=== PATIENT | female | born 1930 | race Caucasian/White ===

== ENCOUNTER 2017-01-25 22:47 | Emergency (ER) | payer OTHER ==
[~2017-01-25] VITALS: Ht 165.1 cm; Wt 100.0 kg
[~2017-01-25 22:47] MED LIST: ALBU17I INH; ASPI81CH5 PO; DARV PO; FURO1TAB93 PO; GABA300 PO; NOVOLOGP2 SQ; SPIRCAP INH; TAB-TAB PO; TELM40 PO; Z.0.OXYGEN INH; ZOCO80TA PO; levemir SQ
[2017-01-25 22:54] VITALS: BP 160/67; PULSE 102; RESP 25; TEMP 98.4
[2017-01-25 22:59] VITALS: BP 149/70; PULSE 95; RESP 25; O2SAT 98
[2017-01-25] MEDS ORDERED: SODIUM CHLORIDE 0.9% FLUSH 10 ML FLUSH IVF PRN (23:00)
[2017-01-25] MEDS ORDERED: FURO1TAB62 PO (23:10)
[2017-01-25] MEDS ORDERED: ASPI81CH CHEW (23:10)
[2017-01-25] MEDS ORDERED: ALBU6.7H INH (23:10)
[2017-01-25] MEDS ORDERED: GABA600T PO (23:10)
[2017-01-25] MEDS ORDERED: LEVEMIR SQ (23:10)
[2017-01-25] MEDS ORDERED: SIMV5TAB3 PO (23:10)
[2017-01-25] MEDS ORDERED: GLIP5TAB8 PO (23:10)
[2017-01-25] MEDS ORDERED: NOVOLOGP2 SQ (23:10)
[2017-01-25] MEDS ORDERED: FUROSEMIDE 40 MG/4 ML VIAL IV PUSH ONE (23:15)
[2017-01-25 23:33] LABS: AUTOMATED NEUTROPHIL # 5.8 TH/MM3 (1.8-7.7); BASOPHIL % 0.6 % (0.0-2.0); EOSINOPHIL # 0.2 TH/MM3 (0-0.4); EOSINOPHIL % 2.7 % (0.0-4.0); HEMATOCRIT 33.6 % (35.0-46.0); HEMO FLAGS DIFF FINAL; LYMPH % 17.6 % (9.0-44.0); LYMPHOCYTE # 1.5 TH/MM3 (1.0-4.8); MEAN CELL VOLUME 93.4 FL (80.0-100.0); MEAN CORPUSCULAR HEMOGLOBIN 31.1 PG (27.0-34.0); MEAN CORPUSCULAR HGB CONC 33.3 % (32.0-36.0); MONO % 8.7 % (0.0-8.0); NEUT % 70.4 % (16.0-70.0); PLATELET COUNT 169 TH/MM3 (150-450); RED CELL DISTRIBUTION WIDTH 16.4 % (11.6-17.2); WHITE BLOOD COUNT 8.2 TH/MM3 (4.0-11.0)
--- NOTE | 2017-01-25 23:39 | RADRPT ---
EXAM DATE/TIME: 01/25/2017 23:19 [facility] COMPARISON: CHEST SINGLE AP, December 31, 2011, 18:51. INDICATIONS : Patient states shortness of breath. MEDICAL HISTORY : None. SURGICAL HISTORY : None. ENCOUNTER: Initial ACUITY: 1 day PAIN SCORE: 2/10 LOCATION: Bilateral chest FINDINGS: A single view of the chest demonstrates the lungs to be symmetrically aerated without evidence of mas s, infiltrate or effusion. Cardiomegaly and tortuous thoracic aorta. Pulmonary vascular congestion. The cardiomediastinal contours are unremarkable. Osseous structures are intact. CONCLUSION: 1. Cardiomegaly and pulmonary vascular congestion. Charles Alexander MD on January 25, 2017 at 23:37 Board Certified Radiologist. This report was verified electronically.
--- NOTE | 2017-01-26 00:01 | PD ---
HPI Chief Complaint: Respiratory Distress Time Seen by Provider: 22:54 Travel History International Travel<30 days: No Contact w/Intl Traveler<30days: No Traveled to known affect area: No History of Present Illness HPI Is an 86 year-old woman who presents to the emergency department complaining of some shortness of breath is been gradual in onset over the past several days. She states she's been having progressively worsening trouble with her breathing during this time. She is on oxygen at home as needed. She is a history of both COPD and CHF. She last used her inhaler at home this morning. She states that she is only been taking half as much Lasix as she supposed to because it makes her go to the bathroom too much. She has noticed increased lower extremity swelling. She's also had some increased cough, and increased sputum production. History Past Medical History Narrative Medical HTN COPD CHF DM HTN HLD Obesity Tetanus Vaccination: > 5 Years Influenza Vaccination: No Menopausal: Yes : 3 Para: 3 Social History Alcohol Use: No Tobacco Use: No Allergies-Medications (Allergen,Severity, Reaction): Coded Allergies: No Known Allergies (Verified , 01/25/17) Reported Meds & Prescriptions Reported Meds & Active Scripts Active Reported Aspirin 81 Mg Chew 81 Mg CHEW DAILY Proventil Hfa 6.7 GM Inh (Albuterol Sulfate) 90 Mcg/Act Aer 1 Puff INH Q4H PRN Novolog Inj (Insulin Aspart) 1,000 Unit/10 Ml Vial 1 Units SQ ONCE Lasix (Furosemide) 20 Mg Tab 20 Mg PO BID Simvastatin 5 Mg Tab 5 Mg PO DAILY Levemir Inj (Insulin Detemir) 1,000 unit/ 10 ML Vial 10 Units SQ BID Do not mix with any other Insulin. Gabapentin 600 Mg Tab 600 Mg PO TID Glipizide 5 Mg Tab 5 Mg PO BIDAC Take 30 minutes before a meal Review of Systems Except as stated in HPI: all other systems reviewed are Neg Physical Exam Narrative GENERAL: 86 year-old woman, no acute distress. SKIN: Focused skin assessment warm/dry. HEAD: Atraumatic. Normocephalic. CARDIOVASCULAR: Regular rate and rhythm. No murmur appreciated. RESPIRATORY: Coarse breath sounds. Rales in the bases. GASTROINTESTINAL: Abdomen soft, non-tender, nondistended. Hepatic and splenic margins not palpable. MUSCULOSKELETAL: No obvious deformities. Pitting edema bilateral lower extremities. NEUROLOGICAL: Awake and alert. No obvious cranial nerve deficits. Motor grossly within normal limits. Normal speech. PSYCHIATRIC: Appropriate mood and affect; insight and judgment normal. Data Data Last Documented VS Vital Signs Date Time Temp Pulse Resp B/P Pulse Ox O2 Delivery O2 Flow Rate FiO2 01/25/17 22:59 98 Nasal Cannula 2 01/25/17 22:59 101 25 01/25/17 22:59 149/70 01/25/17 22:54 98.4 Orders Complete Blood Count With Diff (01/25/17 22:56) Comprehensive Metabolic Panel (01/25/17 22:56) B-Type Natriuretic Peptide (01/25/17 22:56) Magnesium (Mg) (01/25/17 22:56) Troponin I (01/25/17 22:56) Iv Access Insert/Monitor (01/25/17 22:56) Electrocardiogram (01/25/17 22:56) Ecg Monitoring (01/25/17 22:56) Oximetry (01/25/17 22:56) Oxygen Administration (01/25/17 22:56) Chest, Single Ap (01/25/17 22:56) Sodium Chloride 0.9% Flush (Ns Flush) (01/25/17 23:00) Furosemide Inj (Lasix Inj) (01/25/17 23:15) Insulin Detemir Inj (Levemir Inj) (01/26/17 00:02) Albuterol-Ipratropium Neb (Duoneb Neb) (01/26/17 04:00) Azithromycin (Zithromax) (01/26/17 01:00) Labs Laboratory Tests Test 01/25/17 23:12 White Blood Count 8.2 TH/MM3 Red Blood Count 3.60 MIL/MM3 Hemoglobin 11.2 GM/DL Hematocrit 33.6 % Mean Corpuscular Volume 93.4 FL Mean Corpuscular Hemoglobin 31.1 PG Mean Corpuscular Hemoglobin 33.3 % Concent Red Cell Distribution Width 16.4 % Platelet Count 169 TH/MM3 Mean Platelet Volume 8.5 FL Neutrophils (%) (Auto) 70.4 % Lymphocytes (%) (Auto) 17.6 % Monocytes (%) (Auto) 8.7 % Eosinophils (%) (Auto) 2.7 % Basophils (%) (Auto) 0.6 % Neutrophils # (Auto) 5.8 TH/MM3 Lymphocytes # (Auto) 1.5 TH/MM3 Monocytes # (Auto) 0.7 TH/MM3 Eosinophils # (Auto) 0.2 TH/MM3 Basophils # (Auto) 0.0 TH/MM3 CBC Comment DIFF FINAL Differential Comment Sodium Level 141 MEQ/L Potassium Level 4.0 MEQ/L Chloride Level 101 MEQ/L Carbon Dioxide Level 31.3 MEQ/L Anion Gap 9 MEQ/L Blood Urea Nitrogen 31 MG/DL Creatinine 1.32 MG/DL Estimat Glomerular Filtration 38 ML/MIN Rate Random Glucose 135 MG/DL Calcium Level 9.2 MG/DL Magnesium Level 2.1 MG/DL Total Bilirubin 0.5 MG/DL Aspartate Amino Transf 39 U/L (AST/SGOT) Alanine Aminotransferase 31 U/L (ALT/SGPT) Alkaline Phosphatase 77 U/L Troponin I LESS THAN 0.02 NG/ML B-Type Natriuretic Peptide 102 PG/ML Total Protein 7.2 GM/DL Albumin 3.7 GM/DL [facility] Medical Decision Making Medical Screen Exam Complete: Yes Emergency Medical Condition: Yes Interpretation(s) LABS: CBC remarkable for mild anemia. CMP: BUN and creatinine 31/1.32 Troponin negative BNP 102 Chest x-ray: Cardiomegaly and pulmonary vascular congestion. Differential Diagnosis COPD exacerbation, volume overload, CHF, ACS, other Narrative Course Medical decision making INITIAL cause an 86 year-old woman presents to the emergency department with shortness of breath. She is evidence of volume overload with Rales in her bases , edema, and noncompliance with Lasix. She's also had increased cough and sputum production. We'll check labs, x-ray, reassess. FINAL: 86 year-old woman of likely volume overload, CHF exacerbation with mild COPD exacerbation as well. We'll recommend increase diuretic to her prescribed amount, wear soft daily, steroids and azithromycin, outpatient follow-up. Diagnosis Primary Impression: Acute exacerbation of CHF (congestive heart failure) Additional Impression: COPD with exacerbation Additional Instructions: Double Lasix to 40 mg twice a day for 5 days. Take azithromycin as prescribed. Continue albuterol every 4 hours until symptoms resolve. Take prednisone as prescribed. Follow-up with your primary doctor on Saturday. Return to the emergency department for any new or worsening symptoms. Med/Other Pt SpecificInfo: Prescription(s) given Scripts Prednisone (Deltasone)20 Mg Tab40 Mg PO DAILY 7 Days Prov:Daniel Arriaga MD 01/26/17 Azithromycin 250 Mg Svt354 Mg PO DAILY 4 Days Prov:Daniel Arriaga MD 01/26/17 Disposition: 01 DISCHARGE HOME Condition: Stable Daniel Arriaga MD January 26, 2017 00:01
[2017-01-26] MEDS ORDERED: INSULIN DETEMIR 100 UNITS/ML VIAL SQ STA (00:02)
[2017-01-26 00:23] LABS: ALKALINE PHOSPHATASE 77 U/L (45-117); ALT (GPT) 31 U/L (10-53); ANION GAP 9 MEQ/L (5-15); AST (GOT) 39 U/L (15-37); BICARBONATE 31.3 MEQ/L (21.0-32.0); BLOOD UREA NITROGEN 31 MG/DL (7-18); CHLORIDE 101 MEQ/L (98-107); GLOMERULAR FILTRATION RATE 38 ML/MIN (>89); MAGNESIUM 2.1 MG/DL (1.5-2.5); SODIUM (NA) 141 MEQ/L (136-145); TOTAL BILIRUBIN ADULT 0.5 MG/DL (0.2-1.0)
[2017-01-26] MEDS ORDERED: AZIT250T3 PO (01:00)
[2017-01-26] MEDS ORDERED: AZITHROMYCIN 250 MG TAB PO ONE (01:00)
[2017-01-26] MEDS ORDERED: PRED-503 PO (01:01)
[2017-01-26] MEDS ORDERED: RESP: ALBUTEROL 2.5 MG/IPRATROPIUM 0.5 MG NEB (SCH) NEB (04:00)
[2017-01-26 04:20] VITALS: BP 154/70; PULSE 100; RESP 25; TEMP 98.1; O2SAT 97
--- NOTE | 2017-01-26 09:55 | EKG ---
Date Performed: 01/25/2017 Time Performed: 23:03:50 PTAGE: 86 years EKG: Sinus rhythm WITH FIRST DEGREE AV BLOCK LEFT BUNDLE BRANCH BLOCK ABNORMAL ECG PREVIOUS TRACING : 12/31/2011 18.59 DOCTOR: Susie Landry Interpretating Date/Time 01/26/2017 09:53:10
== END 2017-01-26 05:38 | disposition home or self-care (01) ==
LOC: NEPC 22:47
DX: I50.9 Heart failure, unspecified (principal); J44.1 Chronic obstructive pulmonary disease with (acute) exacerbation; I10 Essential (primary) hypertension; E11.9 Type 2 diabetes mellitus without complications; E78.5 Hyperlipidemia, unspecified; Z79.82 Long term (current) use of aspirin; Z79.4 Long term (current) use of insulin
CPT/HCPCS: 71010; 80053; 83735; 83880; 84484; 85025; 93005; 94664; 96372; 96374; 99285; J1940

== ENCOUNTER 2017-02-11 08:56 | Inpatient (IN) | payer OTHER, MEDICARE ==
[2017-02-11] VITALS (9 sets, daily range): BP systolic 101–116; BP diastolic 58–90; PULSE 78–120; RESP 18–22; TEMP 97.6–98.8; O2SAT 93–100
[~2017-02-11] VITALS: Ht 165.1 cm; Wt 100.0 kg
[~2017-02-11 08:56] MED LIST changes: -ALBU17I INH; +ALBU6.7H INH; +ASPI81CH CHEW; -ASPI81CH5 PO; +AZIT250T3 PO; -DARV PO; +FURO1TAB62 PO; -FURO1TAB93 PO; -GABA300 PO; +GABA600T PO; +GLIP5TAB8 PO; +LEVEMIR SQ; +PRED-503 PO; +SIMV5TAB3 PO; -SPIRCAP INH; -TAB-TAB PO; -TELM40 PO; -Z.0.OXYGEN INH; -ZOCO80TA PO; -levemir SQ
[2017-02-11] MEDS ORDERED: LANTINJ SQ (09:09)
[2017-02-11] MEDS ORDERED: LISI-519 PO (09:09)
[2017-02-11] MEDS ORDERED: SODIUM CHLORIDE 0.9% FLUSH 10 ML FLUSH IVF PRN (09:15)
[2017-02-11] MEDS ORDERED: O2 (09:24)
[2017-02-11 09:30] LABS: HEMATOCRIT 33.7 % (35.0-46.0); MEAN CELL VOLUME 92.9 FL (80.0-100.0); MEAN CORPUSCULAR HEMOGLOBIN 30.7 PG (27.0-34.0); MEAN CORPUSCULAR HGB CONC 33.1 % (32.0-36.0); PLATELET COUNT 156 TH/MM3 (150-450); RED BLOOD COUNT 3.63 MIL/MM3 (4.00-5.30); RED CELL DISTRIBUTION WIDTH 15.8 % (11.6-17.2); WHITE BLOOD COUNT 7.5 TH/MM3 (4.0-11.0)
[2017-02-11 09:47] LABS: INTERNATIONAL NORMALIZED RATIO 0.9 RATIO; PROTHROMBIN TIME - PATIENT 10.3 SEC (9.8-11.6)
[2017-02-11 09:52] LABS: BICARBONATE 33.4 MEQ/L (21.0-32.0); BLOOD UREA NITROGEN 58 MG/DL (7-18)
--- NOTE | 2017-02-11 09:52 | RADHPO ---
EXAM DATE/TIME: 02/11/2017 09:38 [facility] COMPARISON: CHEST SINGLE AP, January 25, 2017, 23:19. INDICATIONS : Short of breath, bilateral lower extremity swelling. MEDICAL HISTORY : Chronic obstructive pulmonary disease. SURGICAL HISTORY : None. ENCOUNTER: Initial ACUITY: 2 days PAIN SCORE: 0/10 LOCATION: Bilateral chest FINDINGS: A single AP erect portable view of the chest was obtained again demonstrates mild cardiomegaly. There are no new confluent infiltrates or effusions. There is no perihilar edema. Overlying electrocardiog nicole leads are present. There mild tracheal calcifications. At changes are again noted in the aorta. CONCLUSION: Stable appearance of cardiomegaly and no definite congestive heart failure. Figueroa Richmond MD on February 11, 2017 at 9:49 Board Certified Radiologist. This report was verified electronically.
[2017-02-11 09:54] LABS: ANION GAP 11 MEQ/L (5-15); CHLORIDE 95 MEQ/L (98-107); POTASSIUM 3.7 MEQ/L (3.5-5.1); SODIUM (NA) 139 MEQ/L (136-145)
[2017-02-11 09:55] LABS: ALT (GPT) 19 U/L (10-53); GLOMERULAR FILTRATION RATE 24 ML/MIN (>89)
[2017-02-11 09:57] LABS: HEMO FLAGS AUTO DIFF; TOTAL BILIRUBIN ADULT 0.8 MG/DL (0.2-1.0)
[2017-02-11 09:58] LABS: ALKALINE PHOSPHATASE 60 U/L (45-117)
[2017-02-11 09:59] LABS: CREATINE KINASE 41 U/L (26-192)
[2017-02-11 10:01] LABS: AST (GOT) 14 U/L (15-37)
[2017-02-11 10:34] LABS: EOSINOPHILS 6 % (0-4); NEUTROPHIL # MANUAL DIFF 5.7 TH/MM3 (1.8-7.7); POLYS (SEG NEUTROPHILS) 76 % (16-70); WBC DIFF SAMPLE 100
[2017-02-11 10:36] LABS: PLATELET ESTIMATE SMEAR NORMAL (NORMAL); PLATELET MORPHOLOGY NORMAL (NORMAL); SCAN/DIFF FINAL DIFF MANUAL
[2017-02-11 11:00] LABS: BLOOD, URINE NEG (NEG); GLUCOSE,URINE NEG (NEG); KETONE, URINE NEG (NEG); NITRITE,URINE NEG (NEG)
[2017-02-11 11:12] LABS: METHOD OF COLLECTION VOIDED
[2017-02-11 11:13] LABS: URINE COLOR YELLOW (YELLW/STRAW)
[2017-02-11 11:15] LABS: BACTERIA, URINE FEW /hpf; COMMENT (UR) CULT NOT INDICATED; CULTURE IF INDICATED CULT NOT INDICATED; SQUAMOUS EPITHELIAL CELL URINE >8 /hpf (0-5); WBC, URINE 0-2 /hpf (0-5)
--- NOTE | 2017-02-11 11:29 | PD ---
HPI Chief Complaint: General Weakness Time Seen by Provider: 09:07 Travel History International Travel<30 days: No Contact w/Intl Traveler<30days: No Traveled to known affect area: No History of Present Illness HPI Patient is a 86 year old female, BIBEMS after she was having tremors and muscle spasms, that she says have been preventing her from walking. She says she has not been able to take her medications because she was unable to get up and get them. She denies any chest pain or increased SOB. She denies any falls. She was here about 2 weeks ago for a CHF/COPD exacerbation and was told to double her lasix. She has not had any fevers or chills. She does complain of some lightheadedness. PFSH Past Medical History Hx Anticoagulant Therapy: No Arthritis: Yes Blood Disorders: No Cardiovascular Problems: Yes (HTN, CHOL, CHF) High Cholesterol: Yes COPD: Yes Diabetes: Yes Patient Takes Glucophage: No Diminished Hearing: No Gastrointestinal Disorders: No Hypertension: Yes Immune Disorder: No Neurologic: No Psychiatric: No Reproductive: No Respiratory: Yes Tetanus Vaccination: Unknown ?: Not Menopausal: Yes : 3 Para: 3 Past Surgical History Appendectomy: Yes Cholecystectomy: Yes Eye Surgery: Yes (CATARACTS) Hysterectomy: Yes Social History Alcohol Use: No Tobacco Use: No Substance Use: No Allergies-Medications (Allergen,Severity, Reaction): Coded Allergies: No Known Allergies (Verified , 02/11/17) Reported Meds & Prescriptions Reported Meds & Active Scripts Active Reported [O2] Lisinopril 5 Mg Tab 5 Mg PO DAILY Lantus Solostar Pen Inj (Insulin Glargine) 300 Unit/3 Ml Pen 30 Units SQ HS Aspirin 81 Mg Chew 81 Mg CHEW DAILY Proventil Hfa 6.7 GM Inh (Albuterol Sulfate) 90 Mcg/Act Aer 1 Puff INH Q4H PRN Lasix (Furosemide) 20 Mg Tab 20 Mg PO BID Simvastatin 5 Mg Tab 5 Mg PO DAILY Gabapentin 600 Mg Tab 600 Mg PO TID Glipizide 5 Mg Tab 5 Mg PO BIDAC Take 30 minutes before a meal Review of Systems Except as stated in HPI: all other systems reviewed are Neg General / Constitutional: No: Fever, Chills Eyes: No: Blurred Vision HENT: Positive: Lightheadedness, No: Headaches Cardiovascular: No: Chest Pain or Discomfort Respiratory: Positive: Shortness of Breath Gastrointestinal: No: Nausea, Vomiting Genitourinary: No: Dysuria Musculoskeletal: Positive: Myalgias, Weakness Skin: No Rash Neurologic: Positive: Weakness, No: Sensory Disturbance Physical Exam Narrative GENERAL: Awake and alert, no acute distress. SKIN: Focused skin assessment warm/dry. HEAD: Atraumatic. Normocephalic. EYES: Pupils equal and round. No scleral icterus. EOMI ENT: Mucous membranes pink and moist. NECK: Trachea midline. No JVD. CARDIOVASCULAR: Regular rate and rhythm. No murmur appreciated. RESPIRATORY: No accessory muscle use. Clear to auscultation. Breath sounds equal bilaterally. GASTROINTESTINAL: Abdomen soft, non-tender, nondistended. MUSCULOSKELETAL: No obvious deformities. No clubbing. No cyanosis. 2+ pitting edema, bilateral lower extremities. NEUROLOGICAL: Awake and alert. No obvious cranial nerve deficits. Motor grossly within normal limits. Normal speech. PSYCHIATRIC: Appropriate mood and affect; insight and judgment normal. Data Data Last Documented VS Vital Signs Date Time Temp Pulse Resp B/P Pulse Ox O2 Delivery O2 Flow Rate FiO2 02/11/17 10:54 100 22 116/61 100 Nasal Cannula 2 02/11/17 09:04 98.8 Orders Complete Blood Count With Diff (02/11/17 09:08) Comprehensive Metabolic Panel (02/11/17 09:08) B-Type Natriuretic Peptide (02/11/17 09:08) Act Partial Throm Time (Ptt) (02/11/17 09:08) Prothrombin Time / Inr (Pt) (02/11/17 09:08) Ckmb (Isoenzyme) Profile (02/11/17 09:08) Troponin I (02/11/17 09:08) Urinalysis - C+S If Indicated (02/11/17 09:08) Ua Includes Microscopic (02/11/17 09:08) Iv Access Insert/Monitor (02/11/17 09:08) Ecg Monitoring (02/11/17 09:08) Oximetry (02/11/17 09:08) Oxygen Administration (02/11/17 09:08) Chest, Single Ap (02/11/17 09:08) Sodium Chloride 0.9% Flush (Ns Flush) (02/11/17 09:15) Admit Order (Ed Use Only) (02/11/17 ) Labs Laboratory Tests Test 02/11/17 02/11/17 09:10 10:40 White Blood Count 7.5 TH/MM3 Red Blood Count 3.63 MIL/MM3 Hemoglobin 11.1 GM/DL Hematocrit 33.7 % Mean Corpuscular Volume 92.9 FL Mean Corpuscular Hemoglobin 30.7 PG Mean Corpuscular Hemoglobin 33.1 % Concent Red Cell Distribution Width 15.8 % Platelet Count 156 TH/MM3 Mean Platelet Volume 8.4 FL Neutrophils (%) (Auto) % Lymphocytes (%) (Auto) % Monocytes (%) (Auto) % Eosinophils (%) (Auto) % Basophils (%) (Auto) % Neutrophils # (Auto) TH/MM3 Lymphocytes # (Auto) TH/MM3 Monocytes # (Auto) TH/MM3 Eosinophils # (Auto) TH/MM3 Basophils # (Auto) TH/MM3 CBC Comment AUTO DIFF Differential Total Cells 100 Counted Neutrophils % (Manual) 76 % Lymphocytes % 14 % Monocytes % 4 % Eosinophils % 6 % Neutrophils # (Manual) 5.7 TH/MM3 Differential Comment FINAL DIFF MANUAL Platelet Estimate NORMAL Platelet Morphology Comment NORMAL Prothrombin Time 10.3 SEC Prothromb Time International 0.9 RATIO Ratio Activated Partial 21.0 SEC Thromboplast Time Sodium Level 139 MEQ/L Potassium Level 3.7 MEQ/L Chloride Level 95 MEQ/L Carbon Dioxide Level 33.4 MEQ/L Anion Gap 11 MEQ/L Blood Urea Nitrogen 58 MG/DL Creatinine 2.00 MG/DL Estimat Glomerular Filtration 24 ML/MIN Rate Random Glucose 198 MG/DL Calcium Level 9.1 MG/DL Total Bilirubin 0.8 MG/DL Aspartate Amino Transf 14 U/L (AST/SGOT) Alanine Aminotransferase 19 U/L (ALT/SGPT) Alkaline Phosphatase 60 U/L Total Creatine Kinase 41 U/L Troponin I 0.02 NG/ML B-Type Natriuretic Peptide 110 PG/ML Total Protein 6.3 GM/DL Albumin 3.2 GM/DL Urine Collection Type VOIDED Urine Color YELLOW Urine Turbidity SLIGHT Urine pH 6.0 Urine Specific [place] 1.013 Urine Protein NEG mg/dL Urine Glucose (UA) NEG mg/dL Urine Ketones NEG mg/dL Urine Occult Blood NEG Urine Nitrite NEG Urine Bilirubin NEG Urine Leukocyte Esterase SMALL Urine WBC 0-2 /hpf Urine Squamous Epithelial >8 /hpf Cells Urine Bacteria FEW /hpf Microscopic Urinalysis Comment CULT NOT INDICATED MDM Medical Decision Making Medical Screen Exam Complete: Yes Emergency Medical Condition: Yes Medical Record Reviewed: Yes Interpretation(s) LBBB Differential Diagnosis electrolyte abnormalities vs ACS vs dehydration vs infection Narrative Course Patient is an 86-year-old female comes in complaining of tremors and being unable to walk. Exam shows no neurologic abnormality. IV established, labs sent. Labs show a creatinine of 2.0, this was 1.22 weeks ago. She is on Lasix and it was increased 2 weeks ago which may account for her increasing creatinine. CT of the head ordered, but patient cannot lay flat and refuses to have the test. Patient tried to walk around the emergency department, but got very winded and was unable to. She'll be admitted for further management. Diagnosis Primary Impression: CELI (acute kidney injury) Additional Impression: Weakness of both legs Admitting Information Admitting Physician Requests: Admit Condition: Stable More Salas MD February 11, 2017 11:29
[2017-02-11] MEDS ORDERED: SODIUM CHLORIDE 0.9% FLUSH 10 ML FLUSH IV FLUSH PRN (12:15)
[2017-02-11] MEDS ORDERED: GLUCAGON 1 MG/ML VIAL OTHER PRN (12:15)
[2017-02-11] MEDS ORDERED: ONDANSETRON HCL 4 MG/2 ML VIAL IVP PRN (12:15)
[2017-02-11] MEDS ORDERED: NALOXONE HCL 0.4 MG/ML AMP IV PRN (12:15)
[2017-02-11] MEDS ORDERED: DEXTROSE 50% IN WATER 50 ML VIAL(D50) IV PRN (12:15)
[2017-02-11] MEDS: INSULIN ASPART SUPPLEMENTAL SCALE SQ SCH ×2 (15:22→22:53)
--- NOTE | 2017-02-11 16:05 | HHI.HP ---
[facility] Service [place] [facility] Primary Care Physician Unknown Admission Diagnosis CELI, generalized weakness Diagnoses: (1) DM2 (diabetes mellitus, type 2) Diagnosis: Secondary (2) HTN (hypertension) Diagnosis: Secondary (3) Myopathy Diagnosis: Secondary (4) CHF (congestive heart failure) Diagnosis: Secondary (5) COPD (chronic obstructive pulmonary disease) (6) CELI (acute kidney injury) Diagnosis: Principal (7) Weakness of both legs Diagnosis: Principal Travel History International Travel<30 Days: No Contact w/Intl Traveler <30 Da: No Traveled to Known Affected Are: No History of Present Illness Mrs. Ruiz is an 86 year old female. She came into the ER secondary to inability to ambulate. Acute findings which may be related or her borderline hypoxia and/or acute kidney injury. She describes it when she tries to bear weight on her legs she feels lightheaded tremulous in her legs become spastic and give way. She has not had any back injuries recently. She declined CT scan of the brain. She has not had any head trauma and does not have unilateral weakness. Her creatinine is elevated but BUN is disproportionately elevated compared to creatinine (suggesting dehydration). She lives at home alone and may be dehydrated secondary to inability to ambulate obtain liquids. Other medical conditions include COPD, CHF, diabetes mellitus type 2, and hypertension. Her CHF appears not to be exacerbated, BNP is only mildly elevated. I'm not certain if primary renal failure versus secondary renal failure is present or if she has some form of myopathy, further testing is ongoing. She has no other complaints. No complaints of pain. No back pain. No numbness. Review of Systems Constitutional: COMPLAINS OF: Fatigue, DENIES: Fever, Chills Eyes: DENIES: Blurred vision, Diplopia Ears, nose, mouth, throat: DENIES: Hearing loss, Vertigo Respiratory: DENIES: Cough, Wheezing, Shortness of breath Cardiovascular: DENIES: Chest pain, Palpitations, Syncope Gastrointestinal: DENIES: Abdominal pain, Black stools, Bloody stools Musculoskeletal: DENIES: Joint pain, Muscle aches Integumentary: DENIES: Abnormal pigmentation Hematologic/lymphatic: DENIES: Bruising Immunologic/allergic: DENIES: Eczema Neurologic: COMPLAINS OF: Abnormal gait, Poor Balance Psychiatric: DENIES: Anxiety Past Family Social History Past Medical History Hypertension Hyperlipidemia COPD Obesity next line CHF Diabetes mellitus type 2 Past Surgical History Tonsillectomy Adenoidectomy Appendectomy Hysterectomy Right knee surgery Cataract surgery Reported Medications Reported Meds & Active Scripts Active Reported [O2] Lisinopril 5 Mg Tab 5 Mg PO DAILY Lantus Solostar Pen Inj (Insulin Glargine) 300 Unit/3 Ml Pen 30 Units SQ HS Aspirin 81 Mg Chew 81 Mg CHEW DAILY Proventil Hfa 6.7 GM Inh (Albuterol Sulfate) 90 Mcg/Act Aer 1 Puff INH Q4H PRN Lasix (Furosemide) 20 Mg Tab 20 Mg PO BID Simvastatin 5 Mg Tab 5 Mg PO DAILY Gabapentin 600 Mg Tab 600 Mg PO TID Glipizide 5 Mg Tab 5 Mg PO BIDAC Take 30 minutes before a meal Allergies: Coded Allergies: No Known Allergies (Verified , 02/11/17) Family History No history other than lymphoma and paternal grandmother Social History Smoking one pack per day No alcohol use No drug abuse Physical Exam Vital Signs Vital Signs Date Time Temp Pulse Resp B/P Pulse Ox O2 Delivery O2 Flow Rate FiO2 02/11/17 13:46 97.6 78 18 106/71 98 02/11/17 12:11 84 20 115/61 98 Nasal Cannula 2 02/11/17 10:54 100 22 116/61 100 Nasal Cannula 2 02/11/17 10:22 94 20 106/58 94 Nasal Cannula 2 02/11/17 09:19 20 95 Nasal Cannula 2 02/11/17 09:11 20 95 Nasal Cannula 2 02/11/17 09:10 92 Nasal Cannula 2 02/11/17 09:04 98.8 108 20 103/63 93 Physical Exam GENERAL: NAD, A&Ox3, global weakness SKIN: Warm and dry. HEAD: Normocephalic. EYES: No scleral icterus. No injection or drainage. NECK: Supple, trachea midline. No JVD or lymphadenopathy. CARDIOVASCULAR: Regular rate and rhythm without murmurs, gallops, or rubs. RESPIRATORY: Breath sounds equal bilaterally. No accessory muscle use. No crackles at bases. GASTROINTESTINAL: Abdomen soft, non-tender, nondistended. No muscle tenderness. MUSCULOSKELETAL: No cyanosis. No pitting edema in lower extremities. Laboratory Laboratory Tests Test 02/11/17 02/11/17 09:10 10:40 White Blood Count 7.5 Red Blood Count 3.63 Hemoglobin 11.1 Hematocrit 33.7 Mean Corpuscular Volume 92.9 Mean Corpuscular Hemoglobin 30.7 Mean Corpuscular Hemoglobin 33.1 Concent Red Cell Distribution Width 15.8 Platelet Count 156 Mean Platelet Volume 8.4 Neutrophils (%) (Auto) Lymphocytes (%) (Auto) Monocytes (%) (Auto) Eosinophils (%) (Auto) Basophils (%) (Auto) Neutrophils # (Auto) Lymphocytes # (Auto) Monocytes # (Auto) Eosinophils # (Auto) Basophils # (Auto) CBC Comment AUTO DIFF Differential Total Cells 100 Counted Neutrophils % (Manual) 76 Lymphocytes % 14 Monocytes % 4 Eosinophils % 6 Neutrophils # (Manual) 5.7 Differential Comment FINAL DIFF MANUAL Platelet Estimate NORMAL Platelet Morphology Comment NORMAL Prothrombin Time 10.3 Prothromb Time International 0.9 Ratio Activated Partial 21.0 Thromboplast Time Sodium Level 139 Potassium Level 3.7 Chloride Level 95 Carbon Dioxide Level 33.4 Anion Gap 11 Blood Urea Nitrogen 58 Creatinine 2.00 Estimat Glomerular Filtration 24 Rate Random Glucose 198 Calcium Level 9.1 Total Bilirubin 0.8 Aspartate Amino Transf 14 (AST/SGOT) Alanine Aminotransferase 19 (ALT/SGPT) Alkaline Phosphatase 60 Total Creatine Kinase 41 Troponin I 0.02 B-Type Natriuretic Peptide 110 Total Protein 6.3 Albumin 3.2 Urine Collection Type VOIDED Urine Color YELLOW Urine Turbidity SLIGHT Urine pH 6.0 Urine Specific [place] 1.013 Urine Protein NEG Urine Glucose (UA) NEG Urine Ketones NEG Urine Occult Blood NEG Urine Nitrite NEG Urine Bilirubin NEG Urine Leukocyte Esterase SMALL Urine WBC 0-2 Urine Squamous Epithelial >8 Cells Urine Bacteria FEW Microscopic Urinalysis Comment CULT NOT INDICATED Result Diagram: 02/11/17 0910 02/11/17 0910 Assessment and Plan Problem List: (1) Weakness of both legs ICD Code: R29.898 Status: Acute (2) DM2 (diabetes mellitus, type 2) ICD Code: E11.9 Status: Acute (3) HTN (hypertension) ICD Code: I10 Status: Acute (4) Hypoxia ICD Code: R09.02 Status: Acute (5) Myopathy ICD Code: G72.9 Status: Acute (6) CHF (congestive heart failure) ICD Code: I50.9 Status: Acute (7) COPD (chronic obstructive pulmonary disease) ICD Code: J44.9 Status: Acute (8) CELI (acute kidney injury) ICD Code: N17.9 Status: Acute Assessment and Plan Assessment and plan 86-year-old female with bilateral lower extremity and upper extremity weakness and CELI. Acute kidney injury IV hydration overnight Follow renal function This remains a possible etiology for her weakness If there is worsening or no improvement we'll consult nephrology Upper extremity weakness Lower extremity weakness Lower extremity weakness is greater than upper extremity weakness Possible myopathy Evaluate with CK, sedimentation rate, CRP, and rheumatoid factor Follow clinically Consider further workup based on preliminary findings History does not correlate with an acute concern for Guillain-Martin syndrome or myasthenia gravis, but this remains in the differential If myopathy is ruled out we'll start considering a neurogenic cause him a consult neurology If this is related to acute kidney injury IV hydration and benefit her Start PT and OT Diabetes mellitus type 2 Insulin sliding scale Diabetic diet Follow blood sugars COPD No exacerbation No change to baseline treatments Follow clinically Congestive heart failure Continue baseline treatments Monitor for any exacerbation given she is given IV hydration This does not appear to be exacerbated at this time Hypertension Continue home medications Follow blood pressures DVT prophylaxis Lovenox to be considered if renal function improves SCDs Physician Certification 2 Midnight Certification Type: Admission for Inpatient Services Order for Inpatient Services The services are ordered in accordance with Medicare regulations or non- Medicare payer requirements, as applicable. In the case of services not specified as inpatient-only, they are appropriately provided as inpatient services in accordance with the 2-midnight benchmark. Estimated LOS (days): 2 days is the estimated time the patient will need to remain in the hospital, assuming treatment plan goals are met and no additional complications. Post-Hospital Plan: Home Niranjan Tovar MD February 11, 2017 4:05 pm
[2017-02-11] MEDS ORDERED: ALBUTEROL SULFATE 90 MCG/ACT HFA 8 GM INHALER INH PRN (16:15)
[2017-02-11 17:00] LABS: MAGNESIUM 2.7 MG/DL (1.5-2.5)
[2017-02-11] MEDS ORDERED: GABAPENTIN 300 MG CAP PO SCH (18:00)
[2017-02-11 18:20] LABS: RHEUMATOID FACTOR TRIGGER LESS THAN 10.0 IU/ML (0.0-14.9)
[2017-02-11] MEDS ORDERED: INSULIN DETEMIR 100 UNITS/ML VIAL SQ SCH (21:00)
[2017-02-11] MEDS: FUROSEMIDE 20 MG TAB PO SCH (22:49)
[2017-02-11] MEDS: SODIUM CHLOR 0.9% 1000 ML INJ 1,000 ML IV SCH (22:51)
[2017-02-11] MEDS: SODIUM CHLORIDE 0.9% FLUSH 10 ML FLUSH IV FLUSH SCH (22:55)
[2017-02-12] VITALS: BP 134/72; PULSE 74; RESP 18; TEMP 97.7; O2SAT 96
[2017-02-12] MEDS: SODIUM CHLOR 0.9% 1000 ML INJ 1,000 ML IV SCH (01:45)
[2017-02-12 04:00] VITALS: BP 121/66; PULSE 76; RESP 18; TEMP 96.2; O2SAT 93
[2017-02-12] MEDS: INSULIN ASPART SUPPLEMENTAL SCALE SQ SCH ×2 (06:32→12:27)
[2017-02-12 07:30] LABS: CHLORIDE 99 MEQ/L (98-107); POTASSIUM 3.8 MEQ/L (3.5-5.1); SODIUM (NA) 143 MEQ/L (136-145)
[2017-02-12 07:33] LABS: AUTOMATED NEUTROPHIL # 5.3 TH/MM3 (1.8-7.7); BASOPHIL % 0.6 % (0.0-2.0); EOSINOPHIL # 0.2 TH/MM3 (0-0.4); EOSINOPHIL % 3.3 % (0.0-4.0); HEMATOCRIT 33.8 % (35.0-46.0); HEMO FLAGS DIFF FINAL; LYMPH % 15.1 % (9.0-44.0); LYMPHOCYTE # 1.1 TH/MM3 (1.0-4.8); MEAN CORPUSCULAR HEMOGLOBIN 31.3 PG (27.0-34.0); MEAN CORPUSCULAR HGB CONC 32.9 % (32.0-36.0); MONO % 8.1 % (0.0-8.0); NEUT % 72.9 % (16.0-70.0); PLATELET COUNT 141 TH/MM3 (150-450); RED BLOOD COUNT 3.56 MIL/MM3 (4.00-5.30); RED CELL DISTRIBUTION WIDTH 16.2 % (11.6-17.2); WHITE BLOOD COUNT 7.2 TH/MM3 (4.0-11.0)
[2017-02-12 07:39] LABS: ANION GAP 9 MEQ/L (5-15); BICARBONATE 35.5 MEQ/L (21.0-32.0)
[2017-02-12 07:42] LABS: ALT (GPT) 19 U/L (10-53); AST (GOT) 14 U/L (15-37); BLOOD UREA NITROGEN 44 MG/DL (7-18); GLOMERULAR FILTRATION RATE 33 ML/MIN (>89)
[2017-02-12 07:43] LABS: TOTAL BILIRUBIN ADULT 0.9 MG/DL (0.2-1.0)
[2017-02-12 08:00] VITALS: BP 127/82; PULSE 88; RESP 18; TEMP 97.3; O2SAT 94
[2017-02-12 08:12] LABS: ALKALINE PHOSPHATASE 60 U/L (45-117)
[2017-02-12] MEDS ORDERED: predniSONE 50 MG TAB PO ONE (08:15)
[2017-02-12] MEDS: FUROSEMIDE 20 MG TAB PO SCH (08:29)
[2017-02-12] MEDS: SODIUM CHLORIDE 0.9% FLUSH 10 ML FLUSH IV FLUSH SCH (08:29)
[2017-02-12] MEDS ORDERED: GABAPENTIN 300 MG CAP PO SCH (09:00)
[2017-02-12] MEDS ORDERED: ASPIRIN 81 MG CHEW TAB CHEW SCH (09:00)
[2017-02-12] MEDS ORDERED: PRED20 PO (12:01)
--- NOTE | 2017-02-12 12:06 | HHI.DS ---
Discharge Summary Admission Date February 11, 2017 at 12:00 pm Discharge Date: February 12, 2017 Admitting Diagnosis CELI, generalized weakness (1) Weakness of both legs ICD Code: R29.898 Diagnosis: Principal (2) DM2 (diabetes mellitus, type 2) ICD Code: E11.9 Diagnosis: Secondary (3) HTN (hypertension) ICD Code: I10 Diagnosis: Secondary (4) CHF (congestive heart failure) ICD Code: I50.9 Diagnosis: Secondary (5) COPD (chronic obstructive pulmonary disease) ICD Code: J44.9 Diagnosis: Secondary (6) CELI (acute kidney injury) ICD Code: N17.9 Diagnosis: Principal Procedures None Brief History - From Admission Mrs. Ruiz is an 86 year old female. She came into the ER secondary to inability to ambulate. Acute findings which may be related or her borderline hypoxia and/or acute kidney injury. She describes it when she tries to bear weight on her legs she feels lightheaded tremulous in her legs become spastic and give way. She has not had any back injuries recently. She declined CT scan of the brain. She has not had any head trauma and does not have unilateral weakness. Her creatinine is elevated but BUN is disproportionately elevated compared to creatinine (suggesting dehydration). She lives at home alone and may be dehydrated secondary to inability to ambulate obtain liquids. Other medical conditions include COPD, CHF, diabetes mellitus type 2, and hypertension. Her CHF appears not to be exacerbated, BNP is only mildly elevated. I'm not certain if primary renal failure versus secondary renal failure is present or if she has some form of myopathy, further testing is ongoing. She has no other complaints. No complaints of pain. No back pain. No numbness. CBC/BMP: 02/12/17 0650 02/12/17 0650 Significant Findings Laboratory Tests Test 02/11/17 02/11/17 02/11/17 02/12/17 09:10 10:40 16:38 06:50 Red Blood Count 3.63 MIL/MM3 3.56 MIL/MM3 (4.00-5.30) (4.00-5.30) Hemoglobin 11.1 GM/DL 11.1 GM/DL (11.6-15.3) (11.6-15.3) Hematocrit 33.7 % 33.8 % (35.0-46.0) (35.0-46.0) Neutrophils % (Manual) 76 % (16-70) Eosinophils % 6 % (0-4) Activated Partial 21.0 SEC Thromboplast Time (24.3-30.1) Chloride Level 95 MEQ/L (98-107) Carbon Dioxide Level 33.4 MEQ/L 35.5 MEQ/L (21.0-32.0) (21.0-32.0) Blood Urea Nitrogen 58 MG/DL (7-18) 44 MG/DL (7-18) Creatinine 2.00 MG/DL 1.50 MG/DL (0.50-1.00) (0.50-1.00) Estimat Glomerular Filtration 24 ML/MIN (>89) 33 ML/MIN (>89) Rate Random Glucose 198 MG/DL 108 MG/DL (74-106) (74-106) Aspartate Amino Transf 14 U/L (15-37) 14 U/L (15-37) (AST/SGOT) B-Type Natriuretic Peptide 110 PG/ML (0-100) Total Protein 6.3 GM/DL (6.4-8.2) Albumin 3.2 GM/DL (3.4-5.0) Urine Leukocyte Esterase SMALL (NEG) Urine Bacteria FEW /hpf (NONE) Erythrocyte Sedimentation Rate 39 mm/hr (0-30) Magnesium Level 2.7 MG/DL (1.5-2.5) C-Reactive Protein 2.93 MG/DL (0.00-0.30) Platelet Count 141 TH/MM3 (150-450) Neutrophils (%) (Auto) 72.9 % (16.0-70.0) Monocytes (%) (Auto) 8.1 % (0.0-8.0) Imaging Last Impressions Chest X-Ray 02/11/17 0908 Signed Impressions: Service Date/Time: Saturday, February 11, 2017 09:38 - CONCLUSION: Stable appearance of cardiomegaly and no definite congestive heart failure. Figueroa Richmond MD Hospital Course Mrs. Ruiz is an 86-year-old female. She was admitted yesterday with inability to ambulate. She described bilateral lower extremity spastic legs Giving way and causing her to fall. She was concerned she might have a degenerative muscular disorder. Workup here showed no elevation in CK to indicate any form of myopathy. She was screaming at the rheumatoid factor study that showed no evidence of autoimmunity. A viral etiology may be present as she had elevated CRP and ESR. She also may have been dehydrated and with IV hydration overnight she has resolution of her acute kidney injury and dehydration. With PT today she was able to ambulate and she feels at a functional baseline. She requests discharge to home. At this point she is medically stable for discharge to home. I'm placing her on 4 days more of by mouth prednisone to treat inflammatory component. Discharge home today. Pt Condition on Discharge: Stable Discharge Disposition: Discharge Home Discharge Time: <= 30 minutes Discharge Instructions DIET: Follow Instructions for: As Tolerated, No Restrictions Activities you can perform: Regular-No Restrictions Follow up Referrals: PCP Follow-up - 1 Week New Medications: Prednisone (Prednisone) 20 Mg Tab 20 MG PO BID Inflammation #8 TAB Continued Medications: Albuterol 6.7 GM Inh (Proventil Hfa 6.7 GM Inh) 90 Mcg/Act Aer 1 PUFF INH Q4H PRN SHORTNESS OF BREATH #1 Ref 0 INHALER Aspirin (Aspirin) 81 Mg Chew 81 MG CHEW DAILY Ref 0 TAB Furosemide (Lasix) 20 Mg Tab 20 MG PO BID #60 Ref 0 TAB Gabapentin (Gabapentin) 600 Mg Tab 600 MG PO TID #90 Ref 0 TAB Glipizide (Glipizide) 5 Mg Tab 5 MG PO BIDAC Take 30 minutes before a meal Blood Sugar Management #60 Ref 0 TAB Insulin Glargine Inj (Lantus Solostar Pen Inj) 300 Unit/3 Ml Pen 30 UNITS SQ HS Blood Sugar Management Ref 0 PEN Lisinopril (Lisinopril) 5 Mg Tab 5 MG PO DAILY Blood Pressure Management #30 Ref 0 TAB Simvastatin (Simvastatin) 5 Mg Tab 5 MG PO DAILY Cholesterol Management #30 Ref 0 TAB ([O2]) Niranjan Tovar MD February 12, 2017 12:05 pm
--- NOTE | 2017-02-12 15:43 | EKG ---
Date Performed: 02/11/2017 Time Performed: 08:56:48 PTAGE: 86 years EKG: Sinus tachycardia with 1st degree A-V block. Consider left atrial abnormality Left bundle b ranch block Abnormal ECG Compared to prior tracing no significant change PREVIOUS TRACING : 01/25/2017 23.03 DOCTOR: Marco Merino Interpretating Date/Time 02/12/2017 15:42:28
[2017-02-12] MEDS ORDERED: predniSONE 20 MG TAB PO SCH (21:00)
== END 2017-02-12 14:44 | disposition home or self-care (01) | DRG 641 ==
LOC: PHED 08:56 → PHEDA 12:00 → PH3A 12:54
PROVIDERS: ADMIT Hospitalist; ATTEND Hospitalist
DX: E86.0 Dehydration (principal); N17.9 Acute kidney failure, unspecified; J44.9 Chronic obstructive pulmonary disease, unspecified; I11.0 Hypertensive heart disease with heart failure; I50.9 Heart failure, unspecified; M62.81 Muscle weakness (generalized); M62.838 Other muscle spasm; E11.9 Type 2 diabetes mellitus without complications; E78.5 Hyperlipidemia, unspecified; R09.02 Hypoxemia; Z68.36 Body mass index [BMI] 36.0-36.9, adult; E66.9 Obesity, unspecified; Z79.4 Long term (current) use of insulin; Z87.891 Personal history of nicotine dependence
CPT/HCPCS: 71010; 80053; 81001; 82550; 82948; 83735; 83880; 84100; 84484; 85007; 85025; 85027; 85610; 85652; 85730; 86140; 86430; 93005; 99285; J1815; J7030; J7512